=== PATIENT | female | born 1980 | race Caucasian/White ===

== ENCOUNTER 2017-10-25 07:59 | Emergency (ER) | payer BC ==
[~2017-10-25] VITALS: Ht 165.1 cm; Wt 132.6 kg
[~2017-10-25 07:59] MED LIST: ANAPROX275 MG OR; ANTIHYPERTENSIVE OR; BACTRIM DS1 TAB OR; BACTRIM DS1 TAB PO; BUPROPION150 MG PO; CEPHALEXIN500 MG OR; CEPHALEXIN500 MG PO; CIPRO500 MG OR; CIPROFLOXACN500 MG PO; CRYSELLE-2828 TABS OR; EFFEXOR75 MG PO; FLAGYL500 MG OR; FLEXERIL OR; FLEXERIL PO; FLONASE NASAL50 MCG; HYDROCHLOROT25 MG OR; HYDROCHLOROT25 MG PO; IBUPROFEN800 MG OR; KLONOPIN1 MG PO; LISINOP/HCTZ1 TA1 OR; LISINOPRIL20 MG PO; LO/OVRAL OR; METFORMIN500 M1 PO; METFORMIN500 MG PO; NAPROSYN500 MG OR; NAPROSYN500 MG PO; NECON PO; NO HOME MEDS; PRENATA7 OR; PRILOSEC20 MG/CAP PO; PROCARDIA10 MG PO; PROCTOCORT1 % EX; PSYCH MED; PYRIDIUM200 MG PO; SINGULAIR10 MG OR; ZESTORETIC1 TA1 OR; [UNRECOGNIZED DRUG - REMARK]
[2017-10-25] MEDS ORDERED: TRULICITY1.5 MG/0.5 (08:50)
[2017-10-25] MEDS ORDERED: METHOCARBAM500 MG PO (08:51)
[2017-10-25] MEDS ORDERED: ALL DAY ALLG10 MG PO (08:53)
[2017-10-25] MEDS ORDERED: FLEXERIL PO (08:53)
[2017-10-25 09:12] LABS: INFLUENZA A POSITIVE (NONE DETECT)
[2017-10-25 09:13] LABS: INFLUENZA B NONE DETECTED (NONE DETECT)
[2017-10-25] MEDS ORDERED: PREDNISONE50 MG PO (09:22)
[2017-10-25] MEDS ORDERED: TAM75CAP PO (09:22)
[2017-10-25] MEDS ORDERED: PROAIR HFA108 MCG/AC PO (09:22)
[2017-10-25 09:31] VITALS: BP 120/75
== END 2017-10-25 09:36 | disposition home or self-care (01) | DRG 153 ==
LOC: ED 07:59
PROVIDERS: Family Medicine
DX: J11.1 Influenza due to unidentified influenza virus with other respiratory manifestations (principal); J45.901 Unspecified asthma with (acute) exacerbation; E11.9 Type 2 diabetes mellitus without complications; I10 Essential (primary) hypertension

== ENCOUNTER 2018-01-13 09:52 | Observation (INO) | payer OTHER, BC ==
[~2018-01-13] VITALS: Ht 165.1 cm; Wt 147.4 kg
[~2018-01-13 09:52] MED LIST changes: +ALL DAY ALLG10 MG PO; +METHOCARBAM500 MG PO; +PREDNISONE50 MG PO; +PROAIR HFA108 MCG/AC PO; +TAM75CAP PO; +TRULICITY1.5 MG/0.5
[2018-01-13] MEDS ORDERED: FLONASE AL50 MCG/ACT NAB (10:16)
[2018-01-13] MEDS ORDERED: QVAR80 MCG/ACT IN (10:17)
[2018-01-13] MEDS ORDERED: ALBUTEROL SUL0.083 % IN (10:18)
[2018-01-13 10:39] LABS: HEMATOCRIT 34.5 % (37.0-47.0); HEMOGLOBIN 11.7 g/dl (12.0-16.0); IMMATURE GRANULOCYTES 0.5 % (0.0-1.0); MEAN CELL VOLUME 88.5 fL CALC (80.0-100.0); MEAN CORPUSCULAR HGB CONC 33.9 g/L CALC (32.0-36.0); NEUT# 4.25 thou/uL (2.00-7.15); RED BLOOD COUNT 3.9 mill/uL (4.20-5.60); RED CELL DISTRI WIDTH 13.4 % (11.5-15.5)
[2018-01-13 10:53] LABS: ALBUMIN 4.1 g/dL (3.2-5.0); ALKALINE PHOSPHATASE 95 u/l (38-126); ANION GAP 17 (6-22 (CALC)); BILIRUBIN, TOTAL 0.6 mg/dL (0.0-1.4); BUN 20 mg/dL (7-17); BUN/CREATININE RATIO 24 (12-20 (CALC)); CARBON DIOXIDE 25 mmol/l (22-30); CHLORIDE 101 mmol/l (95-108); CREATININE 0.9 mg/dL (0.5-1.0); GFR > 60 ML/MIN (>=60 (CALC)); GFR FOR AFR.AMER. > 60 ML/MIN (>=60 (CALC)); POTASSIUM 3.8 mmol/l (3.5-5.1); SGPT/ALT 57 u/l (9-52); SODIUM 139 mmol/l (137-146); TOTAL PROTEIN 8.1 g/dL (6.3-8.2)
[2018-01-13 10:55] LABS: SGOT/AST 54 u/l (14-36)
[2018-01-13 11:02] LABS: AMYLASE 39 u/l (30-110); LIPASE 154 u/l (23-300)
[2018-01-13 11:05] LABS: MYOGLOBIN 32 ng/mL (0 - 62)
[2018-01-13 11:28] LABS: URINE BILIRUBIN - DIPSTICK NEGATIVE (NEGATIVE); URINE BLOOD DIPSTICK NEGATIVE (NEGATIVE); URINE COLOR YELLOW; URINE GLUCOSE - DIPSTICK NEGATIVE (NEGATIVE); URINE KETONE NEGATIVE (NEGATIVE); URINE LEUK ESTERASE NEGATIVE (NEGATIVE); URINE NITRITE - DIPSTICK NEGATIVE (Negative); URINE PH 5.5 (4.5-8.0); URINE PROTEIN - DIPSTICK NEGATIVE (NEG-TRACE); URINE UROBILINOGEN - DIPSTICK 0.2 E.U./dL (0.2)
[2018-01-13 12:27] LABS: URINE CLARITY CLEAR
[2018-01-13 13:00] VITALS: BP 127/82
[2018-01-13 17:06] VITALS: BP 109/65
[2018-01-13 19:00] VITALS: BP 105/69
[2018-01-13 23:00] VITALS: BP 121/75
[2018-01-14 04:15] VITALS: BP 118/72
[2018-01-14 06:29] LABS: HEMATOCRIT 31.2 % (37.0-47.0); HEMOGLOBIN 10.7 g/dl (12.0-16.0); MEAN CELL VOLUME 87.6 fL CALC (80.0-100.0); MEAN CORPUSCULAR HGB 30.1 pG CALC (26.0-32.0); MEAN CORPUSCULAR HGB CONC 34.3 g/L CALC (32.0-36.0); RED BLOOD COUNT 3.56 mill/uL (4.20-5.60)
[2018-01-14 06:36] LABS: ANION GAP 18 (6-22 (CALC)); BUN 20 mg/dL (7-17); BUN/CREATININE RATIO 27 (12-20 (CALC)); CALCULATED LDLCHOLESTEROL 103 mg/dL (62-129 (CALC)); CARBON DIOXIDE 22 mmol/l (22-30); CHLORIDE 101 mmol/l (95-108); CHOLESTEROL HDL RATIO 3.2 (<4.4 (CALC)); CREATININE 0.8 mg/dL (0.5-1.0); GFR > 60 ML/MIN (>=60 (CALC)); GFR FOR AFR.AMER. > 60 ML/MIN (>=60 (CALC)); HDL CHOLESTEROL 62 mg/dL (>=40); SODIUM 137 mmol/l (137-146); TOTAL CHOLESTEROL 196 mg/dl (0-199); TOTAL TRIGLYCERIDES 158 mg/dl (30-149); VLDL CHOLESTROL 32 mg/dl (1-41 (CALC))
[2018-01-14 07:45] VITALS: BP 120/62
[2018-01-14] MEDS ORDERED: PREDNISONE10 MG PO (11:05)
[2018-01-14 11:26] VITALS: BP 116/62
[2018-01-14] MEDS ORDERED: MOTRIN800 MG PO (12:52)
[2018-01-14] MEDS ORDERED: FLEXERIL PO (14:14)
== END 2018-01-14 16:20 | disposition home or self-care (01) | DRG 313 ==
LOC: ED 09:52 → ED-I 12:00 → ED 12:22 → MS2 12:23
PROVIDERS: Emergency Medicine; ADMIT Internal Medicine; ATTEND Internal Medicine
DX: R07.89 Other chest pain (principal); Z68.43 Body mass index [BMI] 50.0-59.9, adult; E11.9 Type 2 diabetes mellitus without complications; I10 Essential (primary) hypertension; J45.909 Unspecified asthma, uncomplicated; E66.9 Obesity, unspecified
CPT/HCPCS: G0378; S0164

== ENCOUNTER 2018-03-18 15:59 | Emergency (ER) | payer BC ==
[~2018-03-18] VITALS: Ht 165.1 cm; Wt 110.0 kg
[~2018-03-18 15:59] MED LIST changes: +ALBUTEROL SUL0.083 % IN; +FLONASE AL50 MCG/ACT NAB; +MOTRIN800 MG PO; +PREDNISONE10 MG PO; +QVAR80 MCG/ACT IN
[2018-03-18] MEDS ORDERED: BENADRYL 50MG C50 MG PO (17:25)
[2018-03-18] MEDS ORDERED: MEDDOSEPAK PO (17:25)
[2018-03-18] MEDS ORDERED: PEPCID20 MG PO (17:25)
[2018-03-18 17:26] VITALS: BP 152/75
== END 2018-03-18 17:40 | disposition home or self-care (01) | DRG 923 ==
LOC: ED 15:59
DX: T78.1XXA Other adverse food reactions, not elsewhere classified, initial encounter (principal); R23.8 Other skin changes

== ENCOUNTER 2019-01-25 19:01 | Emergency (ER) | payer BC ==
[~2019-01-25] VITALS: Ht 165.1 cm; Wt 142.0 kg
[~2019-01-25 19:01] MED LIST changes: +BENADRYL 50MG C50 MG PO; +MEDDOSEPAK PO; +PEPCID20 MG PO
[2019-01-25] MEDS ORDERED: FERR SULFATE325 MG PO (19:26)
[2019-01-25 19:53] LABS: IMMATURE GRANULOCYTES 0.4 % (0.0-5.0); MEAN CELL VOLUME 88.6 fL CALC (80.0-100.0); MEAN CORPUSCULAR HGB 29.6 pG CALC (26.0-32.0); MEAN CORPUSCULAR HGB CONC 33.4 g/L CALC (32.0-36.0); NEUT# 4.92 thou/uL (2.00-7.15); RED BLOOD COUNT 4.39 mill/uL (4.20-5.60); RED CELL DISTRI WIDTH 13.4 % (11.5-15.5)
[2019-01-25 19:57] LABS: HEMATOCRIT 38.9 % (37.0-47.0)
[2019-01-25 20:30] LABS: ALBUMIN 4.1 g/dL (3.2-5.0); ALKALINE PHOSPHATASE 112 u/l (38-126); AMYLASE 76 u/l (30-110); ANION GAP 14 (6-22 (CALC)); BILIRUBIN, TOTAL 0.6 mg/dL (0.0-1.4); BUN 14 mg/dL (7-17); BUN/CREATININE RATIO 21 (12-20 (CALC)); CARBON DIOXIDE 25 mmol/l (22-30); CHLORIDE 101 mmol/l (95-108); CREATININE 0.7 mg/dL (0.5-1.0); GFR > 60 ML/MIN (>=60 (CALC)); GFR FOR AFR.AMER. > 60 ML/MIN (>=60 (CALC)); LIPASE 101 u/l (23-300); POTASSIUM 4.5 mmol/l (3.5-5.1); SGOT/AST 82 u/l (14-36); SODIUM 136 mmol/l (137-146); TOTAL PROTEIN 7.8 g/dL (6.3-8.2)
[2019-01-25 22:13] LABS: URINE BILIRUBIN - DIPSTICK NEGATIVE (NEGATIVE); URINE BLOOD DIPSTICK NEGATIVE (NEGATIVE); URINE COLOR YELLOW; URINE GLUCOSE - DIPSTICK NEGATIVE (NEGATIVE); URINE KETONE NEGATIVE (NEGATIVE); URINE LEUK ESTERASE NEGATIVE (NEGATIVE); URINE NITRITE - DIPSTICK NEGATIVE (Negative); URINE PROTEIN - DIPSTICK NEGATIVE (NEG-TRACE); URINE UROBILINOGEN - DIPSTICK 0.2 E.U./dL (0.2)
[2019-01-26] MEDS ORDERED: CIPROFLOXACN500 MG PO (03:15)
[2019-01-26] MEDS ORDERED: ZOFRAN ODT4 MG SL (03:15)
[2019-01-26 04:01] VITALS: BP 118/66
== END 2019-01-26 03:35 | disposition home or self-care (01) | DRG 392 ==
LOC: ED 19:01
PROVIDERS: Emergency Medicine
DX: R10.84 Generalized abdominal pain (principal); R19.7 Diarrhea, unspecified; R11.2 Nausea with vomiting, unspecified; E11.9 Type 2 diabetes mellitus without complications; I10 Essential (primary) hypertension

== ENCOUNTER 2019-10-12 | Emergency (ER) | payer OTHER ==
[~2019-10-12] MED LIST changes: +FERR SULFATE325 MG PO; +ZOFRAN ODT4 MG SL
[2019-10-12 13:21] LABS: HEMATOCRIT 38.8 % (37.0-47.0); HEMOGLOBIN 12.9 g/dl (12.0-16.0); IMMATURE GRANULOCYTES 0.7 % (0.0-5.0); MEAN CELL VOLUME 87.4 fL CALC (80.0-100.0); MEAN CORPUSCULAR HGB 29.1 pG CALC (26.0-32.0); MEAN CORPUSCULAR HGB CONC 33.2 g/L CALC (32.0-36.0); NEUT# 5.58 thou/uL (2.00-7.15); RED BLOOD COUNT 4.44 mill/uL (4.20-5.60); RED CELL DISTRI WIDTH 13.2 % (11.5-15.5)
[2019-10-12 13:44] LABS: ALBUMIN 4.2 g/dL (3.2-5.0); ALKALINE PHOSPHATASE 96 u/l (38-126); ANION GAP 13 (6-22 (CALC)); BILIRUBIN, TOTAL 0.5 mg/dL (0.0-1.4); BUN 12 mg/dL (7-17); BUN/CREATININE RATIO 19 (12-20 (CALC)); CARBON DIOXIDE 27 mmol/l (22-30); CHLORIDE 100 mmol/l (95-108); CREATININE 0.6 mg/dL (0.5-1.0); GFR > 60 ML/MIN (>=60 (CALC)); GFR FOR AFR.AMER. > 60 ML/MIN (>=60 (CALC)); POTASSIUM 3.9 mmol/l (3.5-5.1); SGOT/AST 30 u/l (14-36); SODIUM 137 mmol/l (137-146); TOTAL PROTEIN 8.1 g/dL (6.3-8.2)
[2019-10-12] MEDS ORDERED: MEDDOSEPAK PO (14:03)
[2019-10-12] MEDS ORDERED: BACTRIM DS1 TAB PO (14:03)
== END 2019-10-12 14:22 | disposition home or self-care (01) | DRG 153 ==
PROVIDERS: Emergency Medicine
DX: J06.9 Acute upper respiratory infection, unspecified (principal); J45.909 Unspecified asthma, uncomplicated; E11.9 Type 2 diabetes mellitus without complications; I10 Essential (primary) hypertension

== ENCOUNTER 2019-10-19 | Emergency (ER) | payer OTHER ==
[2019-10-19 11:54] LABS: HEMATOCRIT 39.1 % (37.0-47.0); HEMOGLOBIN 12.9 g/dl (12.0-16.0); IMMATURE GRANULOCYTES 0.7 % (0.0-5.0); MEAN CELL VOLUME 88.7 fL CALC (80.0-100.0); MEAN CORPUSCULAR HGB 29.3 pG CALC (26.0-32.0); NEUT# 5.05 thou/uL (2.00-7.15); RED BLOOD COUNT 4.41 mill/uL (4.20-5.60); RED CELL DISTRI WIDTH 13.7 % (11.5-15.5)
[2019-10-19 12:10] LABS: ALBUMIN 3.9 g/dL (3.2-5.0); ALKALINE PHOSPHATASE 89 u/l (38-126); AMYLASE 40 u/l (30-110); ANION GAP 11 (6-22 (CALC)); BILIRUBIN, TOTAL 0.7 mg/dL (0.0-1.4); BUN 12 mg/dL (7-17); BUN/CREATININE RATIO 20 (12-20 (CALC)); CARBON DIOXIDE 25 mmol/l (22-30); CHLORIDE 103 mmol/l (95-108); CREATININE 0.6 mg/dL (0.5-1.0); GFR > 60 ML/MIN (>=60 (CALC)); GFR FOR AFR.AMER. > 60 ML/MIN (>=60 (CALC)); LIPASE 93 u/l (23-300); SGOT/AST 32 u/l (14-36); SODIUM 135 mmol/l (137-146); TOTAL PROTEIN 7.5 g/dL (6.3-8.2)
[2019-10-19 13:07] LABS: URINE BILIRUBIN - DIPSTICK NEGATIVE (NEGATIVE); URINE BLOOD DIPSTICK NEGATIVE (NEGATIVE); URINE COLOR YELLOW; URINE GLUCOSE - DIPSTICK NEGATIVE (NEGATIVE); URINE KETONE NEGATIVE (NEGATIVE); URINE LEUK ESTERASE NEGATIVE (NEGATIVE); URINE NITRITE - DIPSTICK NEGATIVE (Negative); URINE PROTEIN - DIPSTICK NEGATIVE (NEG-TRACE); URINE SPECIFIC GRAVITY 1.015; URINE UROBILINOGEN - DIPSTICK 0.2 E.U./dL (0.2)
[2019-10-19] MEDS ORDERED: ONDANSETRON4 MG PO (13:32)
== END 2019-10-19 13:50 | disposition home or self-care (01) | DRG 392 ==
DX: K52.9 Noninfective gastroenteritis and colitis, unspecified (principal); E11.9 Type 2 diabetes mellitus without complications; I10 Essential (primary) hypertension; Z79.84 Long term (current) use of oral hypoglycemic drugs
CPT/HCPCS: S0164

== ENCOUNTER 2019-12-01 | Emergency (ER) | payer OTHER ==
[~2019-12-01] MED LIST changes: +ONDANSETRON4 MG PO
== END 2019-12-01 20:14 | DRG 605 ==
DX: S00.81XA Abrasion of other part of head, initial encounter (principal); S50.872A Other superficial bite of left forearm, initial encounter; E11.9 Type 2 diabetes mellitus without complications; I10 Essential (primary) hypertension; Y04.1XXA Assault by human bite, initial encounter

== ENCOUNTER 2020-03-02 21:03 | Emergency (ER) | payer OTHER ==
[~2020-03-02] VITALS: Ht 165.1 cm; Wt 142.2 kg
[2020-03-02] MEDS ORDERED: ELIMITE52 TOP (22:39)
[2020-03-03 00:14] VITALS: BP 128/79
== END 2020-03-03 00:25 | disposition home or self-care (01) | DRG 607 ==
LOC: ED 21:03
DX: B86 Scabies (principal); E11.9 Type 2 diabetes mellitus without complications; I10 Essential (primary) hypertension; Z79.84 Long term (current) use of oral hypoglycemic drugs

== ENCOUNTER 2020-05-06 16:48 | Emergency (ER) | payer OTHER ==
[~2020-05-06] VITALS: Ht 165.1 cm; Wt 141.8 kg
[~2020-05-06 16:48] MED LIST changes: +ELIMITE52 TOP
[2020-05-06 18:54] VITALS: BP 118/74
== END 2020-05-06 18:55 | disposition home or self-care (01) | DRG 103 ==
LOC: ED 16:48
DX: R51 Headache (principal); T59.3X1A Toxic effect of lacrimogenic gas, accidental (unintentional), initial encounter; E11.9 Type 2 diabetes mellitus without complications; I10 Essential (primary) hypertension; J45.909 Unspecified asthma, uncomplicated; Y92.149 Unspecified place in prison as the place of occurrence of the external cause; Y99.0 Civilian activity done for income or pay; Z79.84 Long term (current) use of oral hypoglycemic drugs

== ENCOUNTER 2020-10-27 16:01 | Emergency (ER) | payer OTHER ==
[~2020-10-27] VITALS: Ht 165.1 cm; Wt 140.0 kg
[2020-10-27 16:53] LABS: URINE BILIRUBIN - DIPSTICK NEGATIVE (NEGATIVE); URINE BLOOD DIPSTICK NEGATIVE (NEGATIVE); URINE COLOR YELLOW; URINE GLUCOSE - DIPSTICK NEGATIVE (NEGATIVE); URINE KETONE NEGATIVE (NEGATIVE); URINE NITRITE - DIPSTICK NEGATIVE (Negative); URINE PROTEIN - DIPSTICK NEGATIVE (NEG-TRACE); URINE SPECIFIC GRAVITY >=1.030; URINE UROBILINOGEN - DIPSTICK 0.2 E.U./dL (0.2)
[2020-10-27 16:54] LABS: URINE LEUK ESTERASE SMALL (NEGATIVE)
[2020-10-27 17:06] LABS: URINE RBC 0-2 RBC/hpf (0-5); URINE SQUAMOUS EPITHELIAL CELL MODERATE EPI/hpf (0-FEW)
[2020-10-27 17:21] LABS: HEMATOCRIT 36.9 % (37.0-47.0); HEMOGLOBIN 12.4 g/dl (12.0-16.0); IMMATURE GRANULOCYTES 0.4 % (0.0-5.0); MEAN CELL VOLUME 88.7 fL CALC (80.0-100.0); MEAN CORPUSCULAR HGB 29.8 pG CALC (26.0-32.0); MEAN CORPUSCULAR HGB CONC 33.6 g/dL CAL (32.0-36.0); NEUT# 5.76 thou/uL (2.00-7.15); RED BLOOD COUNT 4.16 mill/uL (4.20-5.60); RED CELL DISTRI WIDTH 13.3 % (11.5-15.5)
[2020-10-27 17:44] LABS: ALBUMIN 4.1 g/dL (3.2-5.0); ALKALINE PHOSPHATASE 107 u/l (38-126); ANION GAP 14 (6-22 (CALC)); BILIRUBIN, TOTAL 0.5 mg/dL (0.0-1.4); BUN 13 mg/dL (7-17); BUN/CREATININE RATIO 18 (12-20 (CALC)); CARBON DIOXIDE 25 mmol/l (22-30); CHLORIDE 98 mmol/l (95-108); CREATININE 0.7 mg/dL (0.5-1.0); GFR > 60 ML/MIN (>=60 (CALC)); GFR FOR AFR.AMER. > 60 ML/MIN (>=60 (CALC)); LIPASE 88 u/l (23-300); POTASSIUM 3.9 mmol/l (3.5-5.1); SGOT/AST 29 u/l (14-36); SODIUM 134 mmol/l (137-146); TOTAL PROTEIN 7.7 g/dL (6.3-8.2)
[2020-10-27] MEDS ORDERED: METRONIDAZOLE500 MG PO (18:02)
[2020-10-27] MEDS ORDERED: DOXYCYC MONO100 M2 PO (18:02)
[2020-10-27] MEDS ORDERED: NITROFURANTN100 MG PO (18:02)
[2020-10-27 18:11] VITALS: BP 145/88
== END 2020-10-27 18:11 | disposition home or self-care (01) ==
LOC: ED 16:01
PROVIDERS: Family Medicine
DX: N39.0 Urinary tract infection, site not specified (principal); A64 Unspecified sexually transmitted disease; N76.0 Acute vaginitis; E11.9 Type 2 diabetes mellitus without complications; I10 Essential (primary) hypertension; J45.909 Unspecified asthma, uncomplicated; Z79.84 Long term (current) use of oral hypoglycemic drugs; Z88.0 Allergy status to penicillin

== ENCOUNTER 2020-11-17 16:27 | Emergency (ER) | payer OTHER ==
[~2020-11-17] VITALS: Ht 165.1 cm; Wt 140.0 kg
[~2020-11-17 16:27] MED LIST changes: +DOXYCYC MONO100 M2 PO; +METRONIDAZOLE500 MG PO; +NITROFURANTN100 MG PO
[2020-11-17 18:28] LABS: HEMATOCRIT 39.8 % (37.0-47.0); HEMOGLOBIN 13.2 g/dl (12.0-16.0); IMMATURE GRANULOCYTES 0.5 % (0.0-5.0); MEAN CORPUSCULAR HGB 29.5 pG CALC (26.0-32.0); MEAN CORPUSCULAR HGB CONC 33.2 g/dL CAL (32.0-36.0); NEUT# 5.36 thou/uL (2.00-7.15); RED BLOOD COUNT 4.47 mill/uL (4.20-5.60); RED CELL DISTRI WIDTH 13.4 % (11.5-15.5)
[2020-11-17 18:33] LABS: URINE BILIRUBIN - DIPSTICK NEGATIVE (NEGATIVE); URINE BLOOD DIPSTICK NEGATIVE (NEGATIVE); URINE COLOR YELLOW; URINE GLUCOSE - DIPSTICK NEGATIVE (NEGATIVE); URINE KETONE NEGATIVE (NEGATIVE); URINE LEUK ESTERASE NEGATIVE (NEGATIVE); URINE NITRITE - DIPSTICK NEGATIVE (Negative); URINE PROTEIN - DIPSTICK NEGATIVE (NEG-TRACE); URINE SPECIFIC GRAVITY >=1.030; URINE UROBILINOGEN - DIPSTICK 0.2 E.U./dL (0.2)
[2020-11-17 18:57] LABS: ALBUMIN 4.6 g/dL (3.2-5.0); ALKALINE PHOSPHATASE 131 u/l (38-126); AMYLASE 63 u/l (30-110); ANION GAP 12 (6-22 (CALC)); BILIRUBIN, TOTAL 0.6 mg/dL (0.0-1.4); BUN 15 mg/dL (7-17); BUN/CREATININE RATIO 21 (12-20 (CALC)); CHLORIDE 96 mmol/l (95-108); CREATININE 0.7 mg/dL (0.5-1.0); GFR > 60 ML/MIN (>=60 (CALC)); GFR FOR AFR.AMER. > 60 ML/MIN (>=60 (CALC)); LIPASE 162 u/l (23-300); POTASSIUM 3.6 mmol/l (3.5-5.1); SGOT/AST 27 u/l (14-36); SODIUM 135 mmol/l (137-146); TOTAL PROTEIN 8.5 g/dL (6.3-8.2)
[2020-11-17 18:59] LABS: CARBON DIOXIDE 31 mmol/l (22-30)
[2020-11-17 19:09] LABS: MYOGLOBIN 15 ng/mL (0 - 62)
[2020-11-17] MEDS ORDERED: PROCTOSOL HC2.5 % RE (19:45)
[2020-11-17] MEDS ORDERED: VOLTAREN - GENE75 MG PO (19:45)
[2020-11-17 20:00] VITALS: BP 144/72
== END 2020-11-17 20:18 | disposition home or self-care (01) ==
LOC: ED 16:27
PROVIDERS: Emergency Medicine
DX: S39.012A Strain of muscle, fascia and tendon of lower back, initial encounter (principal); K64.4 Residual hemorrhoidal skin tags; K64.8 Other hemorrhoids; E11.9 Type 2 diabetes mellitus without complications; I10 Essential (primary) hypertension; J45.909 Unspecified asthma, uncomplicated; E66.9 Obesity, unspecified; X50.0XXA Overexertion from strenuous movement or load, initial encounter; Z79.84 Long term (current) use of oral hypoglycemic drugs

== ENCOUNTER 2021-07-02 12:47 | Emergency (ER) | payer OTHER, MEDICAID ==
[~2021-07-02] VITALS: Ht 165.1 cm; Wt 136.0 kg
[~2021-07-02 12:47] MED LIST changes: +PROCTOSOL HC2.5 % RE; +VOLTAREN - GENE75 MG PO
[2021-07-02] MEDS ORDERED: JANUVIA100 MG PO (13:39)
[2021-07-02] MEDS ORDERED: OZEMPIC2 MG/1.5 M SC (13:40)
[2021-07-02] MEDS ORDERED: OMEPRAZOLE10 MG PO (13:42)
[2021-07-02] MEDS ORDERED: METHOCARBAMOL500 MG PO (13:45)
[2021-07-02 14:07] LABS: HEMATOCRIT 41.6 % (37.0-47.0); HEMOGLOBIN 13.6 g/dl (12.0-16.0); IMMATURE GRANULOCYTES 0.2 % (0.0-5.0); MEAN CELL VOLUME 89.3 fL CALC (80.0-100.0); MEAN CORPUSCULAR HGB 29.2 pG CALC (26.0-32.0); MEAN CORPUSCULAR HGB CONC 32.7 g/dL CAL (32.0-36.0); NEUT# 6.8 thou/uL (2.00-7.15); RED BLOOD COUNT 4.66 mill/uL (4.20-5.60); RED CELL DISTRI WIDTH 13.1 % (11.5-15.5)
[2021-07-02 14:12] LABS: ALBUMIN 4.4 g/dL (3.2-5.0); ALKALINE PHOSPHATASE 106 u/l (38-126); ANION GAP 14 (6-22 (CALC)); BILIRUBIN, TOTAL 0.9 mg/dL (0.0-1.4); BUN 9 mg/dL (7-17); BUN/CREATININE RATIO 14 (12-20 (CALC)); CARBON DIOXIDE 25 mmol/l (22-30); CHLORIDE 102 mmol/l (95-108); CREATININE 0.7 mg/dL (0.5-1.0); GFR > 60 ML/MIN (>=60 (CALC)); GFR FOR AFR.AMER. > 60 ML/MIN (>=60 (CALC)); LIPASE 171 u/l (23-300); POTASSIUM 3.9 mmol/l (3.5-5.1); SGOT/AST 50 u/l (14-36); SODIUM 137 mmol/l (137-146); TOTAL PROTEIN 8.6 g/dL (6.3-8.2)
[2021-07-02 16:22] LABS: URINE BILIRUBIN - DIPSTICK NEGATIVE (NEGATIVE); URINE BLOOD DIPSTICK TRACE-INTACT (NEGATIVE); URINE COLOR YELLOW; URINE GLUCOSE - DIPSTICK NEGATIVE (NEGATIVE); URINE KETONE NEGATIVE (NEGATIVE); URINE LEUK ESTERASE NEGATIVE (NEGATIVE); URINE PROTEIN - DIPSTICK NEGATIVE (NEG-TRACE); URINE SPECIFIC GRAVITY 1.025; URINE UROBILINOGEN - DIPSTICK 0.2 E.U./dL (0.2)
[2021-07-02 16:24] LABS: URINE NITRITE - DIPSTICK NEGATIVE (Negative)
[2021-07-02] MEDS ORDERED: ZOFRAN4 MG/TAB PO (17:57)
[2021-07-02] MEDS ORDERED: DICYCLOMINE10 MG PO (17:57)
[2021-07-02] MEDS ORDERED: IMODIUM2 MG PO (17:57)
[2021-07-02 18:19] VITALS: BP 124/68
== END 2021-07-02 18:20 | disposition home or self-care (01) | DRG 392 ==
LOC: ED 12:47
PROVIDERS: Emergency Medicine
DX: R10.9 Unspecified abdominal pain (principal); R11.2 Nausea with vomiting, unspecified; T38.3X5A Adverse effect of insulin and oral hypoglycemic [antidiabetic] drugs, initial encounter; E11.9 Type 2 diabetes mellitus without complications; I10 Essential (primary) hypertension; J45.909 Unspecified asthma, uncomplicated; Z79.84 Long term (current) use of oral hypoglycemic drugs

== ENCOUNTER 2021-09-30 10:25 | Emergency (ER) | payer OTHER ==
[~2021-09-30] VITALS: Ht 165.1 cm; Wt 127.0 kg
[~2021-09-30 10:25] MED LIST changes: +DICYCLOMINE10 MG PO; +IMODIUM2 MG PO; +JANUVIA100 MG PO; +METHOCARBAMOL500 MG PO; +OMEPRAZOLE10 MG PO; +OZEMPIC2 MG/1.5 M SC; +ZOFRAN4 MG/TAB PO
[2021-09-30] MEDS ORDERED: IRON325 M1 (11:00)
[2021-09-30] MEDS ORDERED: JARDIANCE10 MG (11:01)
[2021-09-30 11:26] LABS: HCG SERUM/URINE (NEG/POS) NEGATIVE (NEGATIVE)
[2021-09-30] MEDS ORDERED: DOXYCYCLINE100 MG PO (12:57)
[2021-09-30] MEDS ORDERED: MEDDOSEPAK PO (12:57)
[2021-09-30 13:06] VITALS: BP 126/78
== END 2021-09-30 13:15 | disposition home or self-care (01) | DRG 203 ==
LOC: ED 10:25
DX: J45.909 Unspecified asthma, uncomplicated (principal); I10 Essential (primary) hypertension; E11.9 Type 2 diabetes mellitus without complications; Z79.84 Long term (current) use of oral hypoglycemic drugs; Z20.822 Contact with and (suspected) exposure to COVID-19

== ENCOUNTER 2022-04-02 11:52 | Emergency (ER) | payer OTHER, MEDICAID ==
[~2022-04-02] VITALS: Ht 165.1 cm; Wt 122.7 kg
[~2022-04-02 11:52] MED LIST changes: +DOXYCYCLINE100 MG PO; +IRON325 M1; +JARDIANCE10 MG
[2022-04-02 11:58] VITALS: BP 127/71
[2022-04-02 12:00] VITALS: BP 126/75
[2022-04-02 12:16] VITALS: BP 116/74
[2022-04-02 12:30] VITALS: BP 108/73
[2022-04-02 12:33] VITALS: BP 116/77
[2022-04-02 12:45] VITALS: BP 116/77
[2022-04-02] MEDS ORDERED: KEFLEX500 MG PO (12:48)
== END 2022-04-02 13:01 | disposition home or self-care (01) | DRG 605 ==
LOC: ED 11:52
DX: S61.213A Laceration without foreign body of left middle finger without damage to nail, initial encounter (principal); S60.415A Abrasion of left ring finger, initial encounter; S60.417A Abrasion of left little finger, initial encounter; E11.9 Type 2 diabetes mellitus without complications; I10 Essential (primary) hypertension; J45.909 Unspecified asthma, uncomplicated; W22.8XXA Striking against or struck by other objects, initial encounter; Y93.89 Activity, other specified; Y92.009 Unspecified place in unspecified non-institutional (private) residence as the place of occurrence of the external cause; Z79.84 Long term (current) use of oral hypoglycemic drugs

== ENCOUNTER 2022-07-10 22:54 | Emergency (ER) | payer OTHER, MEDICAID ==
[~2022-07-10] VITALS: Ht 162.6 cm; Wt 115.0 kg
[~2022-07-10 22:54] MED LIST changes: +KEFLEX500 MG PO
[2022-07-10 23:20] VITALS: BP 114/76
[2022-07-10 23:30] VITALS: BP 120/73
[2022-07-10 23:46] VITALS: BP 131/90
[2022-07-10 23:53] LABS: HEMATOCRIT 40.9 % (37.0-47.0); HEMOGLOBIN 13.7 g/dl (12.0-16.0); IMMATURE GRANULOCYTES 0.3 % (0.0-5.0); MEAN CELL VOLUME 87.8 fL CALC (80.0-100.0); MEAN CORPUSCULAR HGB 29.4 pG CALC (26.0-32.0); MEAN CORPUSCULAR HGB CONC 33.5 g/dL CAL (32.0-36.0); NEUT# 9.04 thou/uL (2.00-7.15); RED BLOOD COUNT 4.66 mill/uL (4.20-5.60); RED CELL DISTRI WIDTH 13.2 % (11.5-15.5)
[2022-07-11] VITALS (18 sets, daily range): BP systolic 96–128; BP diastolic 51–87
[2022-07-11 00:10] LABS: ALBUMIN 4.1 g/dL (3.2-5.0); ALKALINE PHOSPHATASE 111 u/l (38-126); AMYLASE 91 u/l (30-110); ANION GAP 14 (6-22 (CALC)); BUN 11 mg/dL (7-17); BUN/CREATININE RATIO 16 (12-20 (CALC)); CARBON DIOXIDE 22 mmol/l (22-30); CHLORIDE 106 mmol/l (95-108); CREATININE 0.7 mg/dL (0.5-1.0); GFR FOR AFR.AMER. > 60 ML/MIN (>=60 (CALC)); GFR OTHER RACES > 60 ML/MIN (>=60 (CALC)); LIPASE 336 u/l (23-300); POTASSIUM 3.7 mmol/l (3.5-5.1); SGOT/AST 37 u/l (14-36); SODIUM 138 mmol/l (137-146); TOTAL PROTEIN 8.1 g/dL (6.3-8.2)
[2022-07-11 00:14] LABS: BILIRUBIN, TOTAL 0.4 mg/dL (0.0-1.4)
[2022-07-11 00:21] LABS: MYOGLOBIN 18 ng/mL (0 - 62)
[2022-07-11] MEDS ORDERED: ONDANSETRON4 MG PO (02:06)
[2022-07-11] MEDS ORDERED: ULTRAM50 M1 PO (02:06)
[2022-07-11] MEDS ORDERED: CIPROFLOXACN500 MG PO (02:06)
[2022-07-11] MEDS ORDERED: LOMOTIL2.5 MG PO (02:06)
== END 2022-07-11 03:51 | disposition home or self-care (01) | DRG 392 ==
LOC: ED 22:54
PROVIDERS: Emergency Medicine
DX: K52.9 Noninfective gastroenteritis and colitis, unspecified (principal); R10.9 Unspecified abdominal pain
CPT/HCPCS: J1956; Q9967; S0164

== ENCOUNTER 2022-09-18 09:15 | Day surgery (SDC) | payer OTHER, MEDICAID ==
[~2022-09-18] VITALS: Ht 162.6 cm; Wt 118.8 kg
[~2022-09-18 09:15] MED LIST changes: +B COMPLE2 PO; +IRON (FERROUS S50 MG PO; +LOMOTIL2.5 MG PO; +OMEPRAZOLE DR20 MG PO; +ULTRAM50 M1 PO
[2022-09-18 13:14] VITALS: BP 130/78
== END 2022-09-18 13:27 | disposition home or self-care (01) | DRG 392 ==
LOC: ENDO 09:15 → ORM 12:00 → ENDO 12:00 → ORM 12:50 → ENDO 12:50
PROVIDERS: ATTEND Internal Medicine Gastroenterology
PROC: 0DB98ZX Excision of Duodenum, Via Natural or Artificial Opening Endoscopic, Diagnostic (ICD-10-PCS; principal; 2022-09-18)
PROC: 0DB78ZX Excision of Stomach, Pylorus, Via Natural or Artificial Opening Endoscopic, Diagnostic (ICD-10-PCS; 2022-09-18)
DX: K29.70 Gastritis, unspecified, without bleeding (principal); K31.9 Disease of stomach and duodenum, unspecified; Z90.49 Acquired absence of other specified parts of digestive tract; Z86.010 Personal history of colon polyps

== ENCOUNTER 2022-11-06 11:04 | Day surgery (SDC) | payer OTHER, MEDICAID ==
[~2022-11-06 11:04] MED LIST changes: +BACLOFEN10 MG PO
[2022-11-06 15:01] VITALS: BP 107/77
== END 2022-11-06 15:18 | disposition home or self-care (01) | DRG 392 ==
LOC: ENDO 11:04 → ORM 14:45 → ENDO 14:45
PROVIDERS: ATTEND Internal Medicine Gastroenterology
PROC: 0DBK8ZX Excision of Ascending Colon, Via Natural or Artificial Opening Endoscopic, Diagnostic (ICD-10-PCS; principal; 2022-11-06)
PROC: 0DBL8ZX Excision of Transverse Colon, Via Natural or Artificial Opening Endoscopic, Diagnostic (ICD-10-PCS; 2022-11-06)
PROC: 0DBN8ZX Excision of Sigmoid Colon, Via Natural or Artificial Opening Endoscopic, Diagnostic (ICD-10-PCS; 2022-11-06)
PROC: 0DBP8ZX Excision of Rectum, Via Natural or Artificial Opening Endoscopic, Diagnostic (ICD-10-PCS; 2022-11-06)
PROC: 0DBB8ZX Excision of Ileum, Via Natural or Artificial Opening Endoscopic, Diagnostic (ICD-10-PCS; 2022-11-06)
PROC: 0DBM8ZX Excision of Descending Colon, Via Natural or Artificial Opening Endoscopic, Diagnostic (ICD-10-PCS; 2022-11-06)
DX: K57.30 Diverticulosis of large intestine without perforation or abscess without bleeding (principal); K50.10 Crohn's disease of large intestine without complications; K64.8 Other hemorrhoids; Z86.010 Personal history of colon polyps

== ENCOUNTER 2023-03-15 01:42 | Emergency (ER) | payer OTHER, MEDICAID ==
[~2023-03-15] VITALS: Ht 162.6 cm; Wt 120.0 kg
[2023-03-15 01:50] VITALS: BP 125/68
[2023-03-15 02:04] VITALS: BP 112/67
[2023-03-15] MEDS ORDERED: PEPCID20 MG PO (02:30)
[2023-03-15] MEDS ORDERED: DIPHENHYDRAM50 M2 PO (02:30)
[2023-03-15] MEDS ORDERED: MEDDOSEPAK PO (02:30)
[2023-03-15 02:31] VITALS: BP 116/67
[2023-03-15 02:53] VITALS: BP 116/67
== END 2023-03-15 03:01 | disposition home or self-care (01) | DRG 916 ==
LOC: ED 01:42
DX: T78.40XA Allergy, unspecified, initial encounter (principal); I10 Essential (primary) hypertension; E11.9 Type 2 diabetes mellitus without complications; J45.909 Unspecified asthma, uncomplicated; X58.XXXA Exposure to other specified factors, initial encounter; Z79.84 Long term (current) use of oral hypoglycemic drugs

== ENCOUNTER 2023-05-22 08:21 | Emergency (ER) | payer OTHER, MEDICAID ==
[~2023-05-22] VITALS: Ht 162.6 cm; Wt 117.9 kg
[2023-05-22] VITALS (15 sets, daily range): BP systolic 107–137; BP diastolic 62–90
[~2023-05-22 08:21] MED LIST changes: +DIPHENHYDRAM50 M2 PO
[2023-05-22 08:56] LABS: BASO% 0.1 % (0-3); EOS% 1.9 % (0-8); HEMATOCRIT 39.4 % (37.0-47.0); IMMATURE GRANULOCYTES 0.4 % (0.0-5.0); LYMPH% 25.6 % (15-41); MEAN CELL VOLUME 90.8 fL CALC (80.0-100.0); NEUT# 4.42 thou/uL (2.00-7.15); RED BLOOD COUNT 4.34 mill/uL (4.20-5.60); RED CELL DISTRI WIDTH 13.2 % (11.5-15.5)
[2023-05-22 09:08] LABS: ALBUMIN 3.9 g/dL (3.2-5.0); ALKALINE PHOSPHATASE 98 u/l (38-126); ANION GAP 11 (6-22 (CALC)); BILIRUBIN, TOTAL 0.5 mg/dL (0.02-1.3); BUN 14 mg/dL (7-17); BUN/CREATININE RATIO 19 (12-20 (CALC)); CARBON DIOXIDE 25 mmol/l (22-30); CHLORIDE 105 mmol/l (95-108); CREATININE 0.7 mg/dL (0.5-1.0); GFR FOR AFR.AMER. > 60 ML/MIN (>=60 (CALC)); GFR OTHER RACES > 60 ML/MIN (>=60 (CALC)); POTASSIUM 3.6 mmol/l (3.5-5.1); SGOT/AST 33 u/l (14-36); SODIUM 138 mmol/l (137-146); TOTAL PROTEIN 7.5 g/dL (6.3-8.2)
== END 2023-05-22 12:02 | disposition home or self-care (01) | DRG 605 ==
LOC: ED 08:21
PROVIDERS: Family Medicine
DX: S00.03XA Contusion of scalp, initial encounter (principal); E66.9 Obesity, unspecified; I10 Essential (primary) hypertension; E11.9 Type 2 diabetes mellitus without complications; J45.909 Unspecified asthma, uncomplicated; W18.2XXA Fall in (into) shower or empty bathtub, initial encounter; Y93.E1 Activity, personal bathing and showering; Y92.002 Bathroom of unspecified non-institutional (private) residence as the place of occurrence of the external cause; Z79.84 Long term (current) use of oral hypoglycemic drugs

== ENCOUNTER 2024-06-08 13:11 | Emergency (ER) | payer OTHER ==
[~2024-06-08] VITALS: Ht 162.6 cm; Wt 117.9 kg
[~2024-06-08 13:11] MED LIST changes: +CLEOCIN300 MG PO; +IBUPROFEN600 MG PO; +JARDIANCE25 MG PO; +MIRALAX17 GM PO; +MOUNJARO7.5 MG SC
[2024-06-08] MEDS ORDERED: TRAMADOL HYDROC50 M1 PO (13:54)
[2024-06-08] MEDS ORDERED: PREDNISONE50 MG PO (13:54)
[2024-06-08 14:11] VITALS: BP 135/85
== END 2024-06-08 14:12 | disposition home or self-care (01) | DRG 563 ==
LOC: ED 13:11
DX: S93.402A Sprain of unspecified ligament of left ankle, initial encounter (principal); I10 Essential (primary) hypertension; E11.9 Type 2 diabetes mellitus without complications; J45.909 Unspecified asthma, uncomplicated; X58.XXXA Exposure to other specified factors, initial encounter; Z79.84 Long term (current) use of oral hypoglycemic drugs